=== PATIENT | female | born 2000 | race Caucasian/White ===

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

== ENCOUNTER 2018-07-21 08:39 | Emergency (ER) | payer BC, OTHER ==
[~2018-07-21] VITALS: Ht 162.6 cm; Wt 94.0 kg
[~2018-07-21 08:39] MED LIST changes: +BEN25 PO; +EPIN0.3P4 INJ; +FEXO180T61 PO; +LOPE2CAP PO; +MED4DP PO; +ONDA4TAB8 PO; +PRED20TA PO
[2018-07-21 08:45] VITALS: BP 125/76; PULSE 76; RESP 19; Ht 162.6 cm; Wt 94.0 kg
[2018-07-21] MEDS ORDERED: HYDR28.334 TP (10:06)
--- NOTE | 2018-07-21 10:20 | ERD ---
ER Documentation Chief Complaint Chief Complaint body rash HPI 18-year-old female presents for diffuse body rash x2 days. She states that she has a rash on her chest, breast, stomach and extremities. The rash is itchy. She also has subjective fever. She also complains of sore throat for the past 3 days. Taking Benadryl and Claritin with some relief. No Prior similar symptoms. Denies chest pain or shortness of breath. Currently not taking any other medications including antibiotics. No other modifying factors noted. No other treatments tried at home. ROS All systems reviewed and are negative except as per history of present illness. Medications Home Meds Active Scripts Hydrocortisone (Hydrocortisone Cr) 28.35 Gm Cr, 28.35 GM TP BID PRN for ITCHING for 10 Days, #1 TUBE Prov:MELINDA LIZARRAGA DO 07/21/18 Prednisone* (Prednisone*) 20 Mg Tab, 40 MG PO DAILY for 4 Days, #8 TAB Prov:HALEY NORRIS PA-C 11/05/17 Epinephrine (Epipen 2-Tyrel) 0.3 Mg/0.3 Ml Pen.injctr, 1 EA INJ ONCE PRN for ALLERGIC REACTION, #1 EA Prov:HALEY NORRIS PA-C 11/05/17 Fexofenadine Hcl* (Meera*) 180 Mg Tablet, 180 MG PO DAILY, #30 TAB Prov:EMILIA DANIELSON 09/15/17 Loperamide Hcl* (Imodium*) 2 Mg Capsule, 2 MG PO .AFTER EA LOOSE BM PRN for DIARRHEA, #10 TAB Prov:EMILIA DANIELSON 09/15/17 Methylprednisolone* (Medrol* DOSE PACK) 4 Mg/Dose-Pack Tab.ds.pk, 4 MG PO . DIRECTED for 6 Days, PACKET Prov:EMILIA DANIELSON 09/15/17 Ondansetron Hcl* (Zofran*) 4 Mg Tablet, 4 MG PO Q6H for NAUSEA AND/OR VOMITING, #30 TAB Prov:EMILIA DANIELSON 09/15/17 Diphenhydramine Hcl* (Benadryl*) 25 Mg Cap, 25 MG PO Q6 PRN for ITCHING/RASH, #30 TAB Prov:CLAUDIA AUSTIN PA-C 07/14/17 Reported Medications Ferrous Sulfate* (Ferrous Sulfate*) 325 Mg Tabec, 325 MG PO DAILY, TAB 4/18/17 Multivit/Min/Fol Ac/Iron/Pren* ( S*) 1 Tab Tab, 1 TAB PO DAILY, TAB 05/02/16 Allergies Allergies: Coded Allergies: Penicillins (Verified Allergy, Unknown, 11/06/17) dog dander (Verified Allergy, Unknown, 11/05/17) grass pollen (Verified Allergy, Unknown, 11/05/17) pollen extracts (Verified Allergy, Unknown, 11/05/17) shrimp (Verified Allergy, Unknown, 11/05/17) PMhx/Soc History of Surgery: Yes ( ) Anesthesia Reaction: No Hx Neurological Disorder: No Hx Respiratory Disorders: No Hx Cardiac Disorders: No Hx Psychiatric Problems: No Hx Miscellaneous Medical Probl: Yes (fatty liver) Hx Alcohol Use: No Hx Substance Use: No Hx Tobacco Use: No FmHx Family History: No coronary disease Physical Exam Vitals Vital Signs Date Temp Pulse Resp B/P (MAP) Pulse Ox O2 O2 Flow FiO2 Time Delivery Rate 07/21/18 98.3 76 19 125/76 95 08:45 (92) Physical Exam Const: No acute distress Head: Atraumatic Eyes: Normal Conjunctiva ENT: Normal External Ears, bilateral tympanic membrane intact without erythema or bulging noted, nose and Mouth examination normal, bilateral tonsillar swelling noted Neck: Full range of motion. No meningismus. Resp: Clear to auscultation bilaterally, no wheezing, rales, rhonchi Cardio: Regular rate and rhythm, no murmurs Skin: No petechiae or rashes Ext: No cyanosis, or edema Neur: Awake and alert Psych: Normal Mood and Affect Procedures/MDM Medical Decision Making: Differential diagnosis includes but not limited to upper respiratory infection, pneumonia, sepsis, meningitis, influenza, viral exanthem, strep throat Patient appeared well on physical examination, nontoxic appearing. Lungs were clear to auscultation bilaterally. There is low suspicion for pneumonia, sepsis, meningitis. Patient was complaining of fever, sore throat. No cough and had tonsillar swelling on exam. 2 Centor criteria met. Rapid strep was negative Patient likely has a viral illness. Patient given prescription for supportive medication(s). Patient advised to follow up with PCP in 1-2 days. Patient advised to return to ED for new or worsening symptoms. Patient stable on discharge from the ED. Disclaimer: Inadvertent spelling and grammatical errors are likely due to EHR/dictation software use and do not reflect on the overall quality of patient care. Also, please note that the electronic time recorded on this note does not necessarily reflect the actual time of the patient encounter. Departure Diagnosis: Primary Impression: Rash Condition: Fair Patient Instructions: Self-Care for Skin Rashes Referrals: COMMUNITY CLINICS YOU HAVE RECEIVED A MEDICAL SCREENING EXAM AND THE RESULTS INDICATE THAT YOU DO NOT HAVE A CONDITION THAT REQUIRES URGENT TREATMENT IN THE EMERGENCY DEPARTMENT. FURTHER EVALUATION AND TREATMENT OF YOUR CONDITION CAN WAIT UNTIL YOU ARE SEEN IN YOUR DOCTORS OFFICE WITHIN THE NEXT 1-2 DAYS. IT IS YOUR RESPONSIBILITY TO MAKE AN APPOINTMENT FOR FOLOW-UP CARE. IF YOU HAVE A PRIMARY DOCTOR --you should call your primary doctor and schedule an appointment IF YOU DO NOT HAVE A PRIMARY DOCTOR YOU CAN CALL OUR PHYSICIAN REFERRAL HOTLINE AT IF YOU CAN NOT AFFORD TO SEE A PHYSICIAN YOU CAN CHOSE FROM THE FOLLOWING [facility] [address] [employer] [address] [facility] [address] [employer] [facility] [facility] [address] [facility] [address] [facility] [address] [facility] [facility]. [address] Additional Instructions: Call your primary care doctor TOMORROW for an appointment during the next 1-2 days.See the doctor sooner or return here if your condition worsens before your appointment time. MELINDA LIZARRAGA DO July 21, 2018 10:20
== END 2018-07-21 10:23 | disposition home or self-care (01) ==
LOC: FTE 08:39
DX: R21 Rash and other nonspecific skin eruption (principal); J02.9 Acute pharyngitis, unspecified
CPT/HCPCS: 87880; 99283